=== PATIENT | male | born 1995 | race Caucasian/White ===

== ENCOUNTER 2024-03-30 17:44 | Emergency (ER) | payer BC, SELFPAY ==
--- NOTE | ~2024-03-30 | XR_ITS ---
EXAMINATION: XR KNEE, LEFT CLINICAL INFORMATION: Knee pain COMPARISON: None available. TECHNIQUE: Four views of the left knee. FINDINGS: No fracture or joint effusion. Alignment is anatomic. Joint spaces are maintained. No abnormal soft tissue calcification. XR/XR knee LT 3V IMPRESSION: Normal left knee. Electronically signed by: Chet Aguiar MD 03/30/2024 07:59 PM EDT
[2024-03-30 17:51] VITALS: BP 139/85; PULSE 63; RESP 18; TEMP 36.3; O2SAT 99; BMI 26.7
--- NOTE | 2024-03-30 17:52 | ED.GENADULT ---
HPI - General Adult General Chief complaint: Extremity Problem Stated complaint: LT knee pain radiating to thigh Time Seen by Provider: 03/30/24 20:35 Source: patient Mode of arrival: ambulatory Limitations: no limitations History of Present Illness HPI narrative: Patient is a 29-year-old male who presents emergency department for evaluation. 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 He admits to doing intense physical activity. He reports 1 week ago during a 5 mi run, towards the end he developed pain to the inferior portion of his knee radiating towards the back of the knee. He denied any notable popping sensation or sudden severe pain. The pain continued in radiated anteriorly towards his thigh. He continues to notice pain at the end of his physical activities especially during running since this happened. He admits that he has not really taken time to rest it, apply ice. He has not tried any OTC analgesics as he was advised not to take these medications during intense training in the [employer] to prevent rhabdomyolysis. He denies any numbness tingling or cold sensation to the lower extremity. Denies calf pain. Any redness swelling fevers or chills. No personal history of VTE Related Data Allergies Allergy/AdvReac Type Severity Reaction Status Date / Time Iodinated Contrast Media AdvReac Nausea and Verified 03/30/24 17:53 [Contrast Dye] Vomiting Review of Systems Review of Systems: Yes all other systems are reviewed and are negative [facility] Past Medical History Attestation statement: The following information was validated with the patient. Source: old records reviewed Social History Social History Advance Directives: No Advance Directives Information Provided: No Physical Exam ED Vital Signs: Vital Signs - 24 hr 03/30/24 17:51 Temperature 97.4 F Pulse Rate 63 Respiratory Rate 18 Blood Pressure 139/85 Pulse Oximetry 99 Oxygen Delivery Method Room Air BMI result Body Mass Index 26.7 Appearance: Alert.?Oriented to person, place and time. No acute distress.?Normal affect. CVS: Heart sounds normal. Normal heart rate and rhythm.? Pulses normal.?? Respiratory: No respiratory distress.? Lung sounds clear to auscultation bilaterally?? Skin: Skin warm and dry.? Normal skin color.? Extremities: No lower extremity edema.? No calf ttp. 2+ DP/PT pulse bilaterally. Left knee with no laxity on examination; anterior/posterior drawer test negative, valgus and varus stress test negative. No effusion. No rashes or lesions. No erythema or warmth. Mild tenderness upon palpation of the bilateral hamstring tendons posteriorly Neuro: Moves all extremities spontaneously. Sensation intact bilaterally. No focal neuro deficits. Ambulates with normal steady gait. Course Course Course Narrative: RME, this is a rapid medical exam performed by hCuck Echevarria please refer to primary provider for complete H&P- 29-year-old male presents for evaluation of left knee pain after running earlier today. He denies any specific falls. Plan for x-ray Medical Decision Making Medical Decision Making MDM Narrative: Patient is a 29-year-old male who presents emergency department for evaluation of left knee pain as per HPI, examination overall benign, does have some mild tenderness upon palpation of the bilateral hamstring tendons posteriorly without obvious deformity. Has full range of motion, no laxity, ambulatory with a steady gait. Neurovascularly intact distally. XR was obtained in his without acute osseous abnormality. We discussed etiologies for pain including sprain, tendinitis, possible meniscus tear. He has not taken any time to rest her trial conservative treatment/OTC analgesics. Recommended 3 days refraining from physical activity. Discussed with patient if his symptoms continue, he should seek further outpatient follow-up with his primary care provider and/or an orthopedist specialist. He was provided with a work note to cover the next 3 days. He would like to be able to return to work at his own discretion and exercise as he sees tolerated, at this time I feel this is reasonable. He was advised to be continues to have pain as he is experiencing he should refrain from excessive physical activity as this may worsen his symptoms and potentially lead to further injury. He verbalized understanding. Discharged in stable condition, ambulatory with a steady gait Differential Diagnosis Differential Diagnoses: The differential diagnosis associated with the presentation includes (See narrative above) Independent Interpretation I performed an independent interpretation of an: Plain X-Ray (No acute fracture dislocation) Radiology Impression Discussion of test interpretation with radiology: I have reviewed the radiologist's reading. Radiologist Impression: XR/XR knee LT 3V IMPRESSION: Normal left knee. Tests considered The following testing was considered but not selected: No indication for emergent MRI imaging of the knee for ligamentous/meniscus injury evaluation Prescription Management I considered prescription management with: Pain Medication (See narrative above) Discharge Plan Discharge Clinical Impression: Knee sprain Qualifiers: Encounter type: initial encounter Laterality: left Patient Disposition: Home, Self-Care Instructions: Knee Sprain (ED), How to Use an Elastic Bandage (ED), R.I.C.E. Treatment (ED) Additional Instructions: As discussed, I recommend that you take 3 days to fully rest, avoid any running, physical activity/exertion, bending squatting or twisting that may further exacerbate the pain in your knee. Be sure to apply ice to the area for 10-15 minutes 3-4 times daily. Using use the David bandage for compression as this may help to alleviate your pain. You can take ibuprofen 200 mg, 3 tablets (600mg) every 6-8 hours as needed for pain, in addition to Tylenol 500 mg, 2 tablets (1,000mg) every 4-6 hours as needed for pain, but not to exceed 3 doses daily (3,000mg).? You may consider follow-up with PCP/content development specialist if you continue to have symptoms. You have been provided with a work note to cover the next 3 days, ear discretion if your pain has resolved in you feel well enough to return you may do so, if you continue to have pain/symptoms or concerns then you should seek re-evaluation as previously mentioned Referrals: Physician,None [Primary Care Provider] - Stand Alone Forms: Work/School Release Print Language: Kiswahili
[2024-03-30 22:32] VITALS: BP 139/85; PULSE 63; RESP 18; TEMP 36.3; O2SAT 99
== END 2024-03-30 22:33 | disposition home or self-care (01) ==
PROVIDERS: Emergency Provider Internal Medicine
DX: S83.92XA Sprain of unspecified site of left knee, initial encounter (principal); X50.9XXA Other and unspecified overexertion or strenuous movements or postures, initial encounter; Y93.A6 Activity, grass drills; Y92.328 Other athletic field as the place of occurrence of the external cause; Y99.8 Other external cause status
CPT/HCPCS: 73562; 99282; 99283

== ENCOUNTER 2024-09-05 11:50 | Emergency (ER) | payer BC, SELFPAY ==
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
--- NOTE | ~2024-09-05 | XR_ITS ---
CLINICAL HISTORY: Right sided rib pain pluerisy 2 view chest x-ray Comparison: None Findings: No focal pulmonary opacity, pleural effusion or pneumothorax. Normal size heart. No acute fracture. IMPRESSION: 1. No acute findings. This document has been electronically signed by: Ave Salazar DO on 09/05/2024 13:37:09
[2024-09-05 11:52] VITALS: BP 133/72; PULSE 79; RESP 20; TEMP 36.2; O2SAT 96; BMI 28.6
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
[2024-09-05 12:50] LABS: MANUAL DIFF FLAG NO
--- OUTSIDE RECORDS SUMMARY | 2024-09-05 12:52 | XMS_ITS | Encounter Summary ---
Author Organization [facility] Address [address] [place] [address] Care Team Providers Care Day Care Assistant Name Role Phone Hugo Valente MD Primary Care Provider [phone] Encounter Details Date Type Department Care Team (Late st Contact Info) Description 08/18/2024 Orders Only [facility] [address] [place] [address] Rasheed Carson MD [address] [place] [address] Mass of joint of right wrist (Primary Dx) Social History Tobacco Use Types Packs/Day Years Used Date Smoking Tobacco: Never Smokeless Tobacco: Never Alcohol Use Standard Drinks/Week Comments Never 0 (1 standard drink = 0.6 oz pur e alcohol) [facility] Utilities Answer Date Recorded In the past 12 months has e electric, gas, oil, or water company threatened to shut off services in your home? No 08/03/2024 Hunger Vital Sign Answer Date Recorded Within the past 12 months, y ou worried that your food would run out before you got the money to buy more. Never true 08/03/19 25 Within the past 12 months, t he food you bought just didn't last and you didn't have money to get more. Never true 08/03/2024 Transportation Answer Date Recorded In the past 12 months, has l ack of reliable transportation kept you from medical appointments, meetings, work or from getting things needed for daily living? No 08/03/2024 Housing Answer Date Recorded Housing Risk Low 2 08/03/2024 Housing Risk Medium Not on file 08/03/2024 Housing Risk High Not on file 08/03/2024 What is your living situation today? [facility] 08/03/2024 Education Answer Date Recorded What is the highest level of school you have completed or the highest degree you have received? 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 Not on file documented as of this encounter Plan of Treatment Upcoming Encounters Date Type Department Care Team (Late st Contact Info) Description 09/09/2024 1:00 PM EDT Office Visit [facility] [address] [place] [phone] Rashaun Pruett MD [address] [place] [phone] 11/02/2024 11:30 AM EDT Follow-Up [facility] [address] [place] [phone] Hugo Valente MD [address] [place] [phone] Scheduled Orders Name Type Priority Associated Diagnoses Orde r Schedule XR Wrist 3+ vw Right Imaging Routine Mass of joint of right wrist Expected: 08/18/2024, Expires: 10/18/2025 documented as of this encounter Visit Diagnoses Diagnosis Mass of joint of right wrist- Primary documented in this encounter Care Teams Day Care Assistant Relationship Specialty Start Date End Date Hugo Valente MD [address] [place] [address] PCP - General Internal Medicine 08/03/24 documented as of this encounter
--- OUTSIDE RECORDS SUMMARY | 2024-09-05 12:52 | XMS_ITS | Encounter Summary ---
Author Organization [facility] Address [address] [place] [address] Care Team Providers Care [employer] Name Role Phone Hugo Valente MD Primary Care Provider [phone] Encounter Details Date Type Department Care Team (Late st Contact Info) Description 09/02/2024 Orders Only [facility] [address] [place] [address] Rashaun Pruett MD [address] [place] [address] Right wrist pain (Primary Dx) Social History Tobacco Use Types Packs/Day Years Used Date Smoking Tobacco: Never Smokeless Tobacco: Never Alcohol Use Standard Drinks/Week Comments Never 0 (1 standard drink = 0.6 oz pur e alcohol) [facility] Utilities Answer Date Recorded In the [...] 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 file documented as of this encounter Plan of Treatment Upcoming Encounters Date Type Department Care Team (Late st Contact Info) Description 09/09/2024 1:00 PM EDT Office Visit [facility] [address] [place] [phone] Rashaun Pruett MD [address] [place] [phone] 11/02/2024 11:30 AM EDT Follow-Up [facility] [address] [place] [address] Hugo Valente MD [address] [place] [address] Scheduled Orders Name Type Priority Associated Diagnoses Orde r Schedule X-Ray Wrist Right 3+ Views Imaging Routine Right wrist pain Expected: 09/09/2024, Expires: 11/02/2025 documented as of this encounter Visit Diagnoses Diagnosis Right wrist pain- Primary Pain in joint, forearm documented in this encounter Care Teams [employer] Relationship Specialty Start Date End Date Hugo Valente MD [address] [place] [address] PCP - General Internal Medicine 08/03/24 documented as of this encounter
--- OUTSIDE RECORDS SUMMARY | 2024-09-05 12:52 | XMS_ITS | Encounter Summary ---
Author Organization [facility] Address [address] [place] [address] Care Team Providers Care Inflated Pad Buffer Name Role Phone Hugo Valente MD Primary Care Provider [phone] Encounter Details Date Type Department Care Team (Late st Contact Info) Description 12/30/2023 Orders Only [facility] - External Imaging [address] [place] [address] Radiology, External [address] [place] [address] Social History Tobacco Use Types Packs/Day Years Used Date Smoking Tobacco: Never Smokeless Tobacco: Never Alcohol Use Standard Drinks/Week Comments Never 0 (1 standard drink = 0.6 oz pur e alcohol) [facility] Utilities Answer Date Recorded In the past 12 months has th e electric, gas, oil, or water company [...] 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 on file Not on file documented as of this encounter Plan of Treatment Upcoming Encounters Date Type Department Care Team (Late st Contact Info) Description 09/09/2024 1:00 PM EDT Office Visit [facility] [address] [place] [address] Rashaun Pruett MD [address] [place] [address] 11/02/2024 11:30 AM EDT Follow-Up [facility] [address] [place] [address] Hugo Valente MD [address] [place] [address] Pending Results Name Type Priority Associated Diagnoses Date /Time XR Transfer of Outside Films Upper Extremity Imaging Routine 08/10/2024 1:05 PM EST Scheduled Orders Name Type Priority Associated Diagnoses Orde r Schedule XR Transfer of Outside Films Upper Extremity Imaging Routine Expected: 08/10/2024, Expires: 10/08/2025 documented as of this encounter Visit Diagnoses Not on filedocumented in this encounter Care Teams Inflated Pad Buffer Relationship Specialty Start Date End Date Hugo Valente MD [address] [place] [address] PCP - General Internal Medicine 08/03/24 documented as of this encounter
--- OUTSIDE RECORDS SUMMARY | 2024-09-05 12:52 | XMS_ITS | Encounter Summary ---
Author Organization Located [facility] Address [address] [place] [address] Phone Care Team Providers Care Heat Treater Name Role Phone Marshall Fowler MD, DDS Unavailable [phone] Rigo Manzo MD Unavailable [phone] Lona Freeman DMD Unavailable Sulaiman Baxter MD Primary Care Provider Encounter Details Date Type Department Care Team (Late st Contact Info) Description 10/13/2023 Procedure Pass [facility] DEPT [address] [place] [address] Social History Tobacco Use Types Packs/Day Years Used Date Smoking Tobacco: Former Cigarettes 0.5 2 2 007 - 2009 Smokeless Tobacco: Never Comments:Per pt no longer sm okes Alcohol Use Standard Drinks/Week Comments No 0 (1 standard drink = 0.6 oz pur e alcohol) Education Answer Date Recorded Are you interested in more education? Not on asmita e 10/24/2022 Are you concerned about learning? Not on file 10/24/2022 No 10/24/2022 No 10/24/2022 Digital Access Answer Date Recorded No 11/25/2022 No 11/25/2022 Reliable internet access at home? Not on file 11/25/2022 Device with a working camera? Not on file Intimate Partner Violence Answer Date R ecorded Are you denied basic needs s uch as food, clothing, or medical care? No 10/13/2023 In the past 12 months have y ou been in a relationship with a person who hurts, threatens, or tries to control you? No 10/13/2023 Are you denied basic needs s uch as food, clothing, or medical care? No 10/13/2023 In the past 12 months have y ou been in a relationship with a person who hurts, threatens, or tries to control you? No 10/13/2023 Sex and Gender Information Value Date Recorded Sex Assigned at Not on file Gender Identity Not on file Sexual Orientation Not on file documented as of this encounter Plan of Treatment Not on file documented as of this encounter Visit Diagnoses Not on filedocumented in this encounter Care Teams Heat Treater Relationship Specialty Start Date End Date Sulaiman Baxter MD [address] [place] [address] PCP - General Internal Medicine 09/09/23 Marshall Fowler MD, DDS [address] [place] [address] [email or web address] leader 02/11/20 Rigo Manzo MD [address] [place] [address] [email or web address] insight leader 08/16/21 Lona Freeman DMD [address] [place] [address] Dentistry 08/16/21 documented as of this encounter Additional Source Comments The information contained in this document represents components of the legal health record. It is not the complete legal health record.[facility]
--- OUTSIDE RECORDS SUMMARY | 2024-09-05 12:53 | XMS_ITS | Data Portability ---
Author Organization [facility], [facility] Address [address] [facility] [address] [place] [address] Assessment Encounter Date Assessment Date Assessment LastModified by Organization Details LastModified Time 11/21/2022 11/21/2022 -Presumably musc le tension of L sternocleidomastoid and tension type headache without known injury or midline tenderness on exam -Advised to take OTC ibuprofen or Tylenol Q4-6 hours for pain relief -Recommended to give trial of therapeutic massage for relief of muscle tension -Advised application of warm compresses and topical pain relievers such as Bengay cream, capsaicin cream, or Icy Hot gel -Instructed pt to return to care if symptoms persist or worsen Not available 11/22/2022 14:13:18 Plan of Treatment Reminders Order Date Submit Date Provider Last Modified By Organization Details Last Modified Time Details Appointments None record ed. Lab None record ed. Referral None record ed. Procedures None record ed. Surgeries None record ed. Imaging None record ed. Medication Orders None record ed. Patient TargetsNo targets recorded. Patient InstructionsNo instructions recorded. Reason for Referral None Reported. Problems Name Problem SNOMED Code Status Onset Date Resolution Date Notes Provider Name and Address Organization Details Recorded Time Headache 91651245 Active 023 MIGUEL NORIEGA [address], [place], [address] , [facility] 3 14:12:02 Neck pain 38027285 Active 023 MIGUEL NORIEGA [address], [place], [address] , [facility] 3 14:12:06 Problem Notes None recorded. Medical Equipment None Reported. Allergies Allergen ID Allergen Name Allergen Category Reaction Reaction Severity Criticality Documentation Date Start Date Code Code System Note Provider Name and Address Organization Details Recorded Time 3712 iodine medicatio n Not available Not available Not available 11/21/2022 5933 RxNorm Praveen Rincon [facility] 3 19:15:58 Medications Name Sig Start Date Stop Date Status Note LastModified by Organization Details LastModified Time polyethylene glycol 3350 17 gram oral powder packet MIX 1 PACKET IN 4-8OZ OF WATER, JUICE, COFFEE, OR TEA AND DRINK DAILY NEEDED FOR CONSTIPATIO N active Not Available Not Available No t Available nystatin 100,000 unit/gram topical ointment APPLY 1 APPLICATION TO THE SKIN TWICE A DAY active Not Available Not Available Not Available moxifloxacin 400 mg tablet TAKE 1 TABLET BY MOUTH EVERY DAY FOR 7 DAYS active Not Available Not Available No t Available amoxicillin 875 mg tablet TAKE 1 TABLET BY MOUTH TWICE A DAY FOR 7 DAYS active Not Available Not Available No t Available doxycycline monohydrate 100 mg capsule TAKE 1 CAPSULE BY MOUTH TWICE A DAY FOR 5 DAYS active Not Available Not Available No t Available nystatin 100,000 unit/gram topical powder APPLY TOPICALLY 1 APPLICATION TWICE A DAY active Not Available Not Available Not Available doxycycline hyclate 100 mg tablet TAKE 1 TABLET BY MOUTH TWICE A DAY FOR 7 DAYS active Not Available Not Available No t Available BinaxNOW COVID-19 Ag Self Test kit USE DIRECTED active Not Available Not Available No t Available Vitals Date Recorded Body height Body mass index (BMI) Body weight Heart rate Oxygen saturation Oxygen saturation in Arterial blood by Pulse oximetry Body temperature Systolic blood pressure Diastolic blood pressure Provider Name and Address Organization Details Last Updated DateTime 3 195.58 cm 27.9 kg/m2 361963. 21 g 78 /min 97 % 97 % 98.2 [degF] 130 mm[Hg] 78 mm[Hg] Praveen Rincon [facility] 3 19:20:47 Social History None recorded. Functional Status None recorded. Mental Status None recorded. Family History Nothing Reported. Medical History No medical history recorded. Past Encounters Encounter ID Performer Location Encounter Start Date Encounter Closed Date Diagnosis/Indication Diagnosis SNOMED-CT Code Diagnosis ICD10 Code Diagnosis Note [id number] Dave Mosqueda MD [facility] [address] [place] [address] 11/21/2022 18:50:32 11/26/2022 09:29:48 Headache 26408452 R51.9 Neck pain 32108456 M54.2 Health Concerns Section Related Observation LastModified by Organization Detai ls LastModified Time None Recorded Concern Status LastModified by Organization Details LastModified Time None Recorded Advance Directives Directive None Recorded Payers Encounter Date Sequence Insurance Name Policy Number Policy Ashford Covered Member ID Ashford Member ID Guarantor Name 11/21/2022 1 [facility] [id number] [id number] Notes Date Note Type Note Provider Name and Address Organization Details Recorded Time 11/21/2022 text/html 27 yo M presents with frontal headache x 4 days. He states to have also developed pain of his L jaw and neck 2 days ago. 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 He has not yet taken medication for symptom relief. No known injury to the area. Denies numbness, paresthesia, or weakness. Dave Mosqueda MD [address], [place], [address], [facility] 11/22/2022 15:38:47
--- OUTSIDE RECORDS SUMMARY | 2024-09-05 12:53 | XMS_ITS | Encounter Summary ---
Author Organization [facility] Address [address] [place] [address] Phone Care Team Providers Care Adjunct Nursing Faculty Name Role Phone Pcp, Not Required Primary Care Provider Unavaila Marshall Melgar MD, DDS Unavailable [phone] Unknown, Unknown Primary Care Provider Taras faria Pcp, Not Required Primary Care Provider Unavaila Rigo Gaytan MD Unavailable [phone] Lona Freeman DMD Unavailable [phone] Sulaiman Baxter MD Primary Care Provider Encounter Details Date Type Department Care Team (Late st Contact Info) Description 01/13/2020 Telephone B Emergency Triage Log In [address] [place] [address] Nisha Mckeon, RN [address] [place] [address] [phone] [email or web address] Social History Tobacco Use Types Packs/Day Years Used Date Smoking Tobacco: Former Cigarettes 0.5 2 Smokeless Tobacco: Never Comments:Per pt no longer sm okes Alcohol Use Standard Drinks/Week Comments No 0 (1 standard drink = 0.6 oz pur e alcohol) Sex and Gender Information Value Date Recorded Sex Assigned at Not on file Gender Identity Not on file Sexual Orientation Not on file documented as of this encounter Plan of Treatment Not on file documented as of this encounter Visit Diagnoses Not on filedocumented in this encounter Additional Health Concerns Infection Onset Date Last Indicated Resolved Time CoV-Risk 01/12/2020 01/14/2020 01/26/2020 1:23 AM EDT CoV-Risk 05/23/2020 05/23/2020 06/06/2020 1:24 AM EST CoV-Exposed Comment:Recent close contact 05/23/2020 05/23/2020 06/06/2020 1:25 AM EST CoV-Risk 07/13/2020 07/13/2020 07/14/2020 12:4 8 PM EST CoV-Exposed Comment:Positive COVID-19 07/13/2020 07/13/2020 07/14/2020 12: 48 PM EST COVID-19 07/13/2020 07/13/2020 08/02/2020 1:24 AM EST CoV-Risk 03/05/2021 03/05/2021 03/15/2021 1:25 AM EDT documented as of this encounter Care Teams Adjunct Nursing Faculty Relationship Specialty Start Date End Date Pcp, Not Required [address] [place] [address] PCP - General 03/05/18 01/04/21 Unknown, Unknown, MD PCP - General 01/05/21 01/17/21 Pcp, Not Required [address] [place] [address] PCP - General 01/18/21 09/08/23 Sulaiman Baxter MD [address] [place] [address] PCP - General Internal Medicine 09/09/23 Marshall Fowler MD, DDS [address] [place] [address] [email or web address] stripper and opaquer apprentice 02/11/20 Rigo Manzo MD [address] [place] [address] [email or web address] stripper and opaquer apprentice 08/16/21 Lona Freeman DMD [address] [place] [address] Dentistry 08/16/21 documented as of this encounter Additional Source Comments The information contained in this document represents components of the legal health record. It is not the complete legal health record.[facility]
--- OUTSIDE RECORDS SUMMARY | 2024-09-05 12:53 | XMS_ITS | Encounter Summary ---
Author Organization [facility] Address [address] [place] [address] Care Team Providers Care Torque Tester Name Role Phone Hugo Valente MD Primary Care Provider [phone] Encounter Details Date Type Department Care Team (Late st Contact Info) Description 04/10/2023 [email or web address] Message [facility] Revenue Cycle Management [address] [place] [address] Mychart, Generic Provider [address] [place], [place] [phone] [facility] Customer Service Request Social History Tobacco Use Types Packs/Day Years Used Date Smoking Tobacco: Never Smokeless Tobacco: Never Alcohol Use Standard Drinks/Week Comments Never 0 (1 standard drink = 0.6 oz pur e alcohol) Education Answer Date Recorded What is the [...] 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 Not on file Not on file documented as of this encounter Plan of Treatment Upcoming Encounters Date Type Department Care Team (Late st Contact Info) Description 09/09/2024 1:00 PM EDT Office Visit [facility] [address] [place] [address] Rashaun Pruett MD [address] [place] [address] 11/02/2024 11:30 AM EDT Follow-Up [facility] [address] [place] [address] Hugo Valente MD [address] [place] [address] documented as of this encounter Visit Diagnoses Not on filedocumented in this encounter Care Teams Torque Tester Relationship Specialty Start Date End Date Hugo Valente MD [address] [place] [address] PCP - General Internal Medicine 08/03/24 documented as of this encounter
--- OUTSIDE RECORDS SUMMARY | 2024-09-05 12:53 | XMS_ITS | Clinical Summary ---
Author Organization [facility] Address [address] [place] [address] Phone Care Team Providers Care Check Writing Machine Operator Name Role Phone Unavailable Primary Care Provider Unavailabl e Allergies No known active allergies Medications Medication Sig Dispensed Refills Start Date End Date Status amoxicillin (AMOXIL) 500 MG capsule Take 500 mg by mouth. 01/18/2021 Active cloNIDine (CATAPRES) 0.1 mg tablet Take by mouth. 06/13/2009 Active Social History Tobacco Use Types Packs/Day Years Used Date Smoking Tobacco: Never Smokeless Tobacco: Never Tobacco Cessation:Counseling Given: Not Answered Alcohol Use Standard Drinks/Week Comments Never 0 (1 standard drink = 0.6 oz pur e alcohol) Housing Answer Date Recorded What is your living situation today? I have a [facility] place to live 05/27/2023 Sex and Gender Information Value Date Recorded Sex Assigned at Not on file Gender Identity Not on file Sexual Orientation Not on file Last Filed Vital Signs Vital Sign Reading Time Taken Comments Blood Pressure 128/85 05/27/2023 8:23 PM EST Pulse 70 05/27/2023 8:23 PM EST Temperature 36.5 ??C (97.7 ??F) 05/27/2023 8:23 PM ES T Respiratory Rate 18 05/27/2023 8:23 PM EST Oxygen Saturation 99% 05/27/2023 8:23 PM EST Inhaled Oxygen Concentration - - Weight 106.6 kg (235 lb) 05/27/2023 8:23 PM EST Height 195.6 cm (6' 5 ) 05/27/2023 8:23 PM EST Body Mass Index 27.87 05/27/2023 8:23 PM EST Plan of Treatment Health Maintenance Due Date Last Done Comments Dental Oral Exam 1996 Dental Prophylaxis 1996 Dental X-Ray: Bitewings 1996 Dental X-Ray: Full Mouth 1996 HIV Lifetime Screening 1996 Hepatitis B sAg Lifetime Screening 1996 Hepatitis C Antibody Lifetime Screening 1996 Periodontal Maintenance 1996 THRIVE SCREENING 1996 Oral Health Screen 1996 HEIP Disability Screen 01/19/2001 BEHAVIORAL HEALTH SCREEN 2008 Psych Substance Use Screen 2008 DTAP/TDAP VACCINE (1 - Tdap) 01/19/2015 COVID-19 Vaccine (1 - 2023- season) 2024 INFLUENZA VACCINE (#1) 2024 2, 06/10/2011, 06/20/2010 Zoster Vaccine (1 of 2) 01/19/2046 HPV VACCINES Aged Out No longer eligi ble based on patient's age to complete this topic IPV VACCINES Aged Out No longer eligi ble based on patient's age to complete this topic Pneumonia Vaccine 0-64 Aged Out No lo nger eligible based on patient's age to complete this topic ROTAVIRUS VACCINES Aged Out No longer eligible based on patient's age to complete this topic
--- OUTSIDE RECORDS SUMMARY | 2024-09-05 12:53 | XMS_ITS | Encounter Summary ---
Author Organization [facility] Address [address] [facility] [address] [place] [address] Phone Care Team Providers Care Western Felt Hat Blocker Name Role Phone Marshall Fowler MD, DDS Unavailable [phone] Pcp, Not Required Primary Care Provider UnavailRigo Wilde MD Unavailable [phone] Lona Freeman DMD Unavailable Sulaiman Baxter MD Primary Care Provider Reason for Referral * Surgical (Elective) - Closed Specialty Diagnoses / Procedures Referred By Boni jose Referred To Contact Diagnoses Extraction of tooth needed Lona Freeman DMD [address] [place] [address] [facility] ORAL MAXILLOFACIAL SURGERY [id number] Referral ID Status Reason Start Date Expiration Date Visits Re quested Visits Authorized [id number] Closed 08/16/2021 08/16/2022 1 1 Encounter Details Date Type Department Care Team (Latest Contact Info) Description 08/16/2021 Transcribe Orders [facility] Referral Management [address] [place] [address] Lona Freeman DMD [address] [place] [address] Extraction of tooth needed (Primary Dx) Social History Tobacco Use Types [...] as of this encounter Plan of Treatment Scheduled Referrals Name Type Priority Associated Diagnoses Order Schedule Ambulatory referral to [facility] Oral Maxillofacial Surgery Outpatient Referral Routine Extraction Of Tooth Needed Ordered: 08/16/2021 documented as of this encounter Visit Diagnoses Diagnosis Extraction of tooth needed- Primary documented in this encounter Care Teams Western Felt Hat Blocker Relationship Specialty Start Date End Date Pcp, Not Required [address] [place] [address] PCP - General 01/18/21 09/08/23 Sulaiman Baxter MD [address] [place] [address] PCP - General Internal Medicine 09/09/23 Marshall Fowler MD, DDS [address] [place] [address] [email or web address] blood tester 02/11/20 Rigo Manzo MD [address] [place] [address] [email or web address] blood tester 08/16/21 Lona Freeman DMD [address] [place] [address] Dentistry 08/16/21 documented as of this encounter Additional Source Comments The information contained in this document represents components of the legal health record. It is not the complete legal health record.[facility]
--- OUTSIDE RECORDS SUMMARY | 2024-09-05 12:53 | XMS_ITS | Clinical Summary ---
Author Organization [facility] Address [address] [facility] [address] [place] [address] Care Team Providers Care Arborist Representative Name Role Phone Sulaiman Baxter MD Primary Care Provider Allergies Active Allergy Reactions Criticality Noted Date Comments Dye 12/08/2023 Iodinated Contrast Media Dizziness,Unknown,Other High 07/05/2022 dizziness Social History Tobacco Use Types Packs/Day Years Used Date Smoking Tobacco: Never Assessed Tobacco Cessation:Counseling Given: Not Answered Sex and Gender Information Value Date Recorded Sex Assigned at Not on file Gender Identity Not on file Sexual Orientation Not on file Job Start Date Occupation Industry Not on file Not on file Not on file Last Filed Vital Signs Vital Sign Reading Time Taken Comments Blood Pressure 147/78 12/30/2023 4:40 PM EDT Pulse 65 12/30/2023 4:40 PM EDT Temperature 36.8 ??C (98.2 ??F) 12/30/2023 4:40 PM ED T Respiratory Rate 19 12/30/2023 4:40 PM EDT Oxygen Saturation 100% 12/30/2023 4:40 PM EDT Inhaled Oxygen Concentration - - Weight 102.1 kg (225 lb) 12/08/2023 11:00 AM EDT Height 195.6 cm (6' 5 ) 12/08/2023 11:00 AM EDT Body Mass Index 26.68 12/08/2023 11:00 AM EDT Plan of Treatment Health Maintenance Due Date Last Done Comments HIV Screening 1996 HPV Vaccines (2 - Male 3-dose series) 01/21/2013 12/24/2012 Hepatitis C Screening 01/19/2014 COVID-19 Vaccine (3 - 2024-25 season) 2024 12/24/2020, 11/19/2020 Depression Screening 06/30/2024 DTaP/Tdap/Td Vaccines (8 - Td or Tdap) 09/29/2026 09/29/2016, 06/20/2010, 01/28/2000, Additional history exists Hepatitis B Vaccines Completed 1996, 1996, 1996 HIB Vaccines Completed 05/02/1997, 08/29, 1996, Additional history exists IPV Vaccines Completed 01/28/2000, 01/29, 1996, Additional history exists MMR Vaccines Completed 01/28/2000, 05/02/1997 Varicella Vaccines Completed 06/20/2010, 02/13/1999 Meningococcal Vaccine Completed 12/24/2012, 010 Influenza Vaccine Completed 06/09/2024, , 06/10/2011, Additional history exists Hepatitis A Vaccines Aged Out No long er eligible based on patient's age to complete this topic Meningococcal B Vaccine Aged Out No l onger eligible based on patient's age to complete this topic Pneumococcal Vaccine: Pediatrics (0 to 5 Years) and At-Risk Patients (6 to 49 Years) Aged Out No longer eligible based on patient's age to complete this topic Rotavirus Vaccines Aged Out No longer eligible based on patient's age to complete this topic Care Teams Arborist Representative Relationship Specialty Start Date End Date Sulaiman Baxter MD [facility] Internal Medicine [address] [place] [address] PCP - General Marble Supervisor 05/19/23
--- OUTSIDE RECORDS SUMMARY | 2024-09-05 12:53 | XMS_ITS | Referral Summary ---
Author Organization [facility] Address [address] [place] [address] Phone Care Team Providers Care Machine Leather Trimmer Name Role Phone Unavailable Primary Care Provider [...] your living situation today? I have a [facility] place to live 05/27/2023 Sex and Gender [...] 05/27/2023 8:23 PM EST Plan of Treatment Not on file
--- OUTSIDE RECORDS SUMMARY | 2024-09-05 12:53 | XMS_ITS | Encounter Summary ---
Author Organization [facility] Address [address] [place] [address] Care Team Providers Care Roentgenology Teacher Name Role Phone Hugo Valente MD Primary Care Provider [phone] Reason for Visit * Reason Comments Hand Injury Hand Pain Encounter Details Date Type Department Care Team (Late st Contact Info) Description 09/01/2024 10:29 PM EST - 09/02/2024 12:15 AM EST Emergency [facility] Emergency Department [address] [place] [address] Rasheed Sanchez MD [address] [place] [address] Sabra Dupont MD [address] [place] [id number] Injury of left thumb, initial encounter (Primary Dx) Discharge Disposition: Home or Self Care () Social History Tobacco Use Types Packs/Day Years Used Date Smoking Tobacco: Never Smokeless Tobacco: Never Alcohol Use Standard Drinks/Week Comments Never 0 (1 standard drink = 0.6 oz pur e alcohol) [facility] Utilities Answer Date Recorded In [...] 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 on file Not on file documented as of this encounter Last Filed Vital Signs Vital Sign Reading Time Taken Comments Blood Pressure 116/86 09/01/2024 10:38 PM EST Pulse 94 09/01/2024 10:38 PM EST Temperature 36.7 ??C (98 ??F) 09/01/2024 10:38 PM EST Respiratory Rate 16 09/02/2024 12:14 AM EST Oxygen Saturation 97% 09/01/2024 10:38 PM EST Inhaled Oxygen Concentration - - Weight 102.5 kg (226 lb) 09/01/2024 10:38 PM EST Height 195.6 cm (6' 5 ) 09/01/2024 10:38 PM EST Body Mass Index 26.8 09/01/2024 10:38 PM EST documented in this encounter Discharge Instructions * Discharge Instructions* Jv Coombs MD - 09/02/2024 12:11 AM EST You were evaluated in the emergency department for a left thumb injury. Your examination was reassuring. Please see your primary care provider in a week to ensure that you do not have any sequela of injury that was not picked up on this initial exam. Otherwise use Tylenol and ibuprofen for pain andinflammation. documented in this encounter Medications at Time of Discharge acetaminophen (TYLENOL) 325 mg tablet Take 3 tablets (975 mg total) by mouth every 6 hours as needed for pain. 60 tablet 01/06/2023 polyethylene glycol 3350 (MIRALAX) powder DISSOLVE 17 GRAMS IN 8 OZ OF FLUID LIQUID DRINK DAILY DIRECTED 510 g 08/03/2024 documented as of this encounter Plan of Treatment Upcoming Encounters Date Type Department Care Team (Late st Contact Info) Description 09/09/2024 1:00 PM EDT Office Visit [facility] [address] [place] [id number] Rashaun Pruett MD [address] [place] [phone] 11/02/2024 11:30 AM EDT Follow-Up [facility] [address] [place] [address] Hugo Valente MD [address] [place] [address] documented as of this encounter Procedures * Due to [place] [employer] law, this organization might not be sharing negative HIV tests. Procedure Name Priority Date/Time Associated Diagnosis Comments XR FINGER(S) 2+ VW LEFT STAT 09/01/2024 11:50 PM EST documented in this encounter Results * Due to [place] [employer] law, this organization might not be sharing negative HIV tests. * X-Ray Finger Left 2+ Views (09/01/2024 11:50 PM EST) Anatomical Region Laterality Modality Upper Extremities, Fingers Left Compu vikas Radiography 09/01/2024 11:5 3 PM EST Impressions 09/01/2024 11:54 PM EST 1. ??Unremarkable plain film radiograph of the left first digit. If this radiology report contains a blank impression section, it is an incomplete radiology report. ??Please contact the interpreting radiologist or applicable radiology division as soon as possible to obtain the completed interpretation. ? Workstation ID: [id number] Narrative 09/01/2024 11:54 PM EST EXAMINATION: ??XR FINGER(S) 2+ VW LEFT EXAM DATE: ??09/01/2024 11:26 PM TECHNIQUE: ??AP, lateral, and oblique (3 views) INDICATION: ??hyper abduction of left thumb, pain w/ ROM <524:Comments> COMPARISON: ??None ENCOUNTER: Initial FINDINGS: There is no radiographic evidence of a fracture or dislocation of the left first digit. No significant soft tissue abnormalities are visualized. Joint spaces are preserved. No radiopaque foreign bodies are identified. Resulting Agency Comment [id number] Procedure Note Romel Braga MD - 09/01/2024 EXAMINATION: XR FINGER(S) 2+ VW LEFT EXAM DATE: 09/01/2024 11:26 PM TECHNIQUE: AP, lateral, and oblique (3 views) INDICATION: hyper abduction of left thumb, pain w/ ROM <524:Comments> COMPARISON: None ENCOUNTER: Initial FINDINGS: There is no radiographic evidence of a fracture or dislocation of the leftfirst digit. No significant soft tissue abnormalities are visualized.Joint spaces are preserved. No radiopaque foreign bodies are identified. IMPRESSION: 1. Unremarkable plain film radiograph of the left first digit. If this radiology report contains a blank impression section, it is anincomplete radiology report. Please contact the interpreting radiologistor applicable radiology division as soon as possible to obtain thecompleted interpretation. Workstation ID: [id number] us Rasheed Sanchez MD IMG XR PROCEDURES Final Resul t documented in this encounter Visit Diagnoses Diagnosis Injury of left thumb, initial encounter- Primary documented in this encounter Care Teams Roentgenology Teacher Relationship Specialty Start Date End Date Hugo Valente MD [address] [place] [id number] PCP - General Internal Medicine 08/03/24 documented as of this encounter
--- OUTSIDE RECORDS SUMMARY | 2024-09-05 12:53 | XMS_ITS | Encounter Summary ---
Author Organization [facility] Address [address] [facility] [address] [place] [phone] Phone Care Team Providers Care X Ray Developer Name Role Phone Fco Simpson Nagi PT Primary Care Provider UnaDevin Woodall MD Unavailable [phone] Pcp, Not Required Primary Care Provider Unavaila Marshall Melgar MD, DDS Unavailable [phone] Unknown, Unknown Primary Care Provider Taras faria Pcp, Not Required Primary Care Provider UnavailRigo Wilde MD Unavailable Lona Freeman DMD Unavailable Sulaiman Baxter MD Primary Care Provider Encounter Details Date Type Department Care Team (Late st Contact Info) Description 08/07/2016 [place]hth [place]am [facility] [place] [facility] [address] [place] [address] Spencer Reeves MD, PhD [address] [place] [address] [email or web address] Social History Tobacco Use Types Packs/Day Years Used Date Smoking Tobacco: Former Cigarettes 0.5 2 Comments:Per pt no longer sm okes Alcohol [...] documented as of this encounter Care Teams X Ray Developer Relationship Specialty Start Date End Date Fco Simpson, PT [address], [place] PCP - General 02/02/16 03/04/18 Pcp, Not Required [address] [place] [id number] PCP - General 03/05/18 01/04/21 Unknown, Colin, PCP - General 01/05/21 01/17/21 Pcp, Not Required [address] [place] [address] PCP - General 01/18/21 09/08/23 Sulaiman Baxter MD [address] [place] [id number] PCP - General Internal Medicine 09/09/23 Devin Avila MD [address] [place] [phone] [email or web address] Insurance Assigned Provider 02/01/17 07/04/18 Marshall Fowler MD, DDS [address] [place] [address] [email or web address] tractor machine operator 02/11/20 Rigo Manzo MD [address] [place] [phone] [email or web address] tractor machine operator 08/16/21 Lona Freeman DMD [address] [place] [phone] Dentistry 08/16/21 documented as of this encounter Additional Source Comments The information contained in this document represents components of the legal health record. It is not the complete legal health record.[facility]
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
--- OUTSIDE RECORDS SUMMARY | 2024-09-05 12:53 | XMS_ITS | Encounter Summary ---
Author Organization [facility] Address [address] [employer] [facility] [address] [place] [address] Phone Care Team Providers Care Flume Maker Name Role Phone Pcp, Not Required Primary Care Provider Unavaila Marshall Melgar MD, DDS Unavailable [phone] Unknown, Unknown Primary Care Provider Taras faria Pcp, Not Required Primary Care Provider Unavaila Rigo Gaytan MD Unavailable Lona Freeman DMD Unavailable Sulaiman Baxter MD Primary Care Provider Encounter Details Date Type Department Care Team (Late st Contact Info) Description 02/03/2020 Ophth Exam [facility] Emergency Department [address] [place] [address] Dalia Baez MD [address] [place] [id number] [email or web address] Social History Tobacco Use Types Packs/Day Years [...] Onset Date Last Indicated Resolved Time CoV-Risk 05/23/2020 05/23/2020 06/06/2020 1:24 AM EST Co[facility]-Exposed Comment:Recent close contact 05/23/2020 05/23/2020 06/06/2020 1:25 AM EST CoV-Risk 07/13/2020 07/13/2020 07/14/2020 12:4 8 PM EST [facility]Exposed Comment:Positive COVID-19 07/13/2020 07/13/2020 07/14/2020 12: 48 PM EST COVID-19 07/13/2020 07/13/2020 08/02/2020 1:24 AM EST CoV-Risk 03/05/2021 03/05/2021 03/15/2021 1:25 AM EDT documented as of this encounter Care Teams Flume Maker Relationship Specialty Start Date End Date Pcp, Not Required [address] [place] [address] PCP - General 03/05/18 01/04/21 Unknown, Colin, PCP - General 01/05/21 01/17/21 Pcp, Not Required [address] [place] [address] PCP - General 01/18/21 09/08/23 Sulaiman Baxter MD [address] [place] [address] PCP - General Internal Medicine 09/09/23 Marshall Fowler MD, DDS [address] [place] [phone] [email or web address] procurement analyst 02/11/20 Rigo Manzo MD [address] [place] [address] [email or web address] procurement analyst 08/16/21 Lona Freeman DMD [address] [place] [phone] Dentistry 08/16/21 documented as of this encounter Additional Source Comments The information contained in this document represents components of the legal health record. It is not the complete legal health record.[facility]
--- OUTSIDE RECORDS SUMMARY | 2024-09-05 12:53 | XMS_ITS | Encounter Summary ---
Author Organization [facility] Address [address] [employer] [facility] [address] [place] [phone] Phone Care Team Providers Care Ampoule Examiner Name Role Phone Marshall Fowler MD, DDS Unavailable [phone] Pcp, Not Required Primary Care Provider UnavailRigo Wilde MD Unavailable Lona Freeman DMD Unavailable Sulaiman Baxter MD Primary Care Provider Encounter Details Date Type Department Care Team (Late st Contact Info) Description 09/10/2021 Procedure [facility] Emergency Department, [facility] [address] [place] [address] Social History Tobacco Use Types Packs/Day Years [...] on filedocumented in this encounter Care Teams Ampoule Examiner Relationship Specialty Start Date End Date Pcp, Not Required [address] [place] [phone] PCP - General 01/18/21 09/08/23 Sulaiman Baxter MD [address] [place] [phone] PCP - General Internal Medicine 09/09/23 Marshall Fowler MD, DDS [address] [place] [phone] [email or web address] solution maker 02/11/20 Rigo Manzo MD [address] [place] [address] [email or web address] solution maker 08/16/21 Lona Freeman DMD [address] [place] [phone] Dentistry 08/16/21 documented as of this encounter Additional Source Comments The information contained in this document represents components of the legal health record. It is not the complete legal health record.[facility]
--- OUTSIDE RECORDS SUMMARY | 2024-09-05 12:53 | XMS_ITS | Clinical Summary ---
Author Organization [facility] Address [address] [place] [address] Care Team Providers Care Structured Cabling Technician Name Role Phone Sulaiman Baxter MD Primary Care Provider [phone] Allergies Active Allergy Reactions Criticality Noted Date Comments Iodinated Contrast Media Other (See Comments) 1 08/02/2022 dizziness Social History Tobacco Use Types Packs/Day Years Used Date Smoking Tobacco: Never Assessed Sex and Gender Information Value Date Recorded Sex Assigned at Male 06/01/2023 11:35 PM EST Legal Sex Male 11:32 PM EST Gender Identity Male 06/01/2023 11:35 PM EST Sexual Orientation Not on file Last Filed Vital Signs Vital Sign Reading Time Taken Comments Blood Pressure 142/91 06/01/2023 11:39 PM EST Pulse 84 06/01/2023 11:39 PM EST Temperature 36.7 ??C (98 ??F) 06/01/2023 11:39 PM EST Respiratory Rate 18 06/01/2023 11:39 PM EST Oxygen Saturation 96% 06/01/2023 11:39 PM EST Inhaled Oxygen Concentration - - Weight 105 kg (230 lb 9.6 oz) 10/23/2023 3:40 PM EDT Height 195.6 cm (6' 5 ) 10/23/2023 3:40 PM EDT Body Mass Index 27.35 10/23/2023 3:40 PM EDT Plan of Treatment Health Maintenance Due Date Last Done Comments Depression Screening 2000 Hepatitis C Screening 01/19/2014 COVID-19 Vaccine ( season) 2024 Influenza Vaccine (#1) 2024 , 06/10/2011, 06/20/2010 DTaP,Tdap,and Td Vaccines (8 - Td or Tdap) 09/29/2026 09/29/2016, 06/20/2010, 01/28/2000, Additional history exists Blood Pressure 06/01/2027 06/01/2023 Meningococcal Vaccines Completed 12/24/2012, 2009 Pneumococcal Vaccine: Pediatrics (0 to 5 Years) and At-Risk Patients (6 to 64 Years) Aged Out No longer eligible based on patient's age to complete this topic Insurance [employer] / Indemnity [facility] [employer] / Indemnity BLUE [employer]UE [employer]IELD Care Teams Structured Cabling Technician Relationship Specialty Start Date End Date Sulaiman Baxter MD [address] [place] [phone] PCP - General Internal Medicine 06/02/23
--- OUTSIDE RECORDS SUMMARY | 2024-09-05 12:53 | XMS_ITS | Clinical Summary ---
Author Organization [facility] Address [address] [place] [address] Phone Care Team Providers Care Silk Winding Machine Operator Name Role Phone AutomaticallyONE, SignedONE Unavailable Conditions or Problems No information available. Medications No information available. Medications Administered No information available. Allergies, Adverse Reactions, Alerts No information available. Results Date Name Value Unit Range Flag Description Lab Report: COMPREHENSIVE ME TABOLIC PANEL / LOC:ED, MAGNESIUM / LOC:ED, ... TROPONIN I < 2 ng/L ng/mL 0-45 troponin I MAGNESIUM 2.2 mg/dL 1.6-2.6 Magnesium [Moles/volume] in Serum or Plasma Lab Report: PT WITH INR / LO C:ED, PARTIAL THROMBOPLASTIN TIME / LOC:ED, ... PTT PATIENT 28.2 s 24.1-32 PTT patie nt INR 0.94 INR in Platel et poor plasma by Coagulation assay PT PATIENT 10.1 s 9.5-12.1 Prothromb in time (PT) Lab Report: NT-PRO BNP / LOC :ED PBNP 11.9 0-125 NT-pro BNP Lab Report: HEPATIC FUNCTION PANEL / LOC:ED, BASIC METABOLIC PANEL / LOC ... LIPASE SERUM 44 U/L 12-53 lipase, serum CALCIUM 10.0 mg/dL 8.7-10.4 Calcium [Moles/volume] in Serum or Plasma GFRC 94 (?) mL/min/1 .73m2 >90 Glomerular Filtration Rate Calculation CREATININE 1.10 mg/dL 0.70-1.30 Creatini ne [Mass/volume] in Serum or Plasma BUN 12 mg/dL 9-23 Urea nitrogen [Mass/volume] in Serum or Plasma BG RANDOM 97 mg/dL 70-99 Glucose [Mass/volume] in Blood ANION GAP 7 mEq/L 5-15 Anion gap 4 in Serum or Plasma CO2 TOTAL 28 MEQ/L mmol/L 20.0-31.0 carbon d ioxide, serum, total CL SERUM 107 meq/L 99-113 Chloride [Moles/volume] in Serum or Plasma K SERUM 3.9 meq/L 3.5-5.5 Potassium [Moles/volume] in Serum or Plasma SODIUM 142 MEQ/L mmol/L 135-145 Sodium [Moles/volume] in Serum or Plasma Lab Report: CBC WITH DIFFERE NTIAL / LOC:ED MPV 10.4 fL 9.4-12.4 Platelet sukumar n volume [Entitic volume] in Blood by Scott RDW 12.0 % 11.5-14.5 Erythrocyte distribution width [Ratio] by Automated count MCHC 33.0 G/DL % 31.0-35.5 MCHC [Mas s/volume] by Automated count MCH 28.0 pg 26.0-34.0 MCH [Entiti c mass] by Automated count MCV 84.8 fL 80.0-99.0 MCV [Entiti c volume] by Automated count BASOPH COUNT 0.0 10*3/mm3 0-0.3 Basophi ls [#/volume] in Blood by Manual count EOS COUNT 0.1 10*3/mm3 0-0.5 eosinophil count, blood MONOCYTE CNT 0.4 10*3/mm3 0.0-0.8 monocyt e count, blood LYMPH COUNT 1.9 10*3/mm3 1.0-4.8 lymphocy te count, blood NEUTRO COUNT 3.3 10*3/mm3 1.8-7.7 neutrop hil count, blood IMM GRANU % 0.2 % 0-5 Immature granulocytes/100 leukocytes in Blood BASOPHIL % 0.4 % 0-3 Basophils/ 100 leukocytes in Blood by Manual count EOSINOPHIL % 1.4 % 0-6 Eosinoph ils/100 leukocytes in Blood by Manual count MONOCYTE % 6.4 % 0-11 Monocytes/ 100 leukocytes in Blood by Automated count LYMPHS % 33.3 % 22-44 Lymphocytes/ 100 leukocytes in Blood by Automated count PMN % 58.3 % 40-70 Neutrophils/1 00 leukocytes in Blood by Automated count PLATELETS 273 10*3/mm3 150-450 Platelets [#/volume] in Blood by Automated count HCT 43.0 % 41.0-53.0 Hematocrit [Volume Fraction] of Blood by Automated count HGB 14.2 g/dL 13.5-17.5 Hemoglobin [Mass/volume] in Blood RBC 5.07 10*6/mm3 4.50-5.90 Erythrocyt es [#/volume] in Blood by Automated count WBC 5.7 10*3/mm3 4.5-11.0 Leukocytes [#/volume] in Blood by Automated count Lab Report: HEPATIC FUNCTION PANEL / LOC:ED SGPT (ALT) 25 U/L 7-40 Alanine aminotransferase [Enzymatic activity/volume] in Serum or Plasma SGOT (AST) 18 U/L 13-40 Aspartate aminotransferase [Enzymatic activity/volume] in Serum or Plasma ALK PHOS 94 U/L 46-116 Alkaline phosphatase [Enzymatic activity/volume] in Blood BILI DIRECT 0.1 mg/dL 0.0-0.3 Bilirubin .direct [Mass/volume] in Serum or Plasma BILI TOTAL 0.4 mg/dL 0.3-1.2 Bilirubin. total [Mass/volume] in Serum or Plasma A/G RATIO 1.5 Albumin/Marioal bulin [Mass Ratio] in Serum or Plasma GLOBULIN TOT 2.9 g/dL 2.3-4 Globulin [Mass/volume] in Serum ALBUMIN 4.4 g/dL 3.2-4.8 Albumin [Mass/volume] in Serum or Plasma PROTEIN, TOT 7.3 g/dL 5.7-8.2 Protein [Mass/volume] in Serum or Plasma Lab Report: URINALYSIS EMERG ENCY DEPT / LOC:ED WBC ESTERASE NEGATIVE NEGATIVE leukoc yte (WBC) esterase, urine NITRITE UA NEGATIVE NEGATIVE Nitrite Urine UROBILINO UR 1.0 {Maria D _U}/dL <=1.0 urobilinogen, urine PROTEIN UR NEGATIVE mg/dL NEGATIVE Protein [Mass] in Urine collected for unspecified duration BLOOD UR NEGATIVE NEGATIVE BLOOD, URI NE (hematuria) KETONES UA NEGATIVE mg/dL NEGATIVE Ketones [Mass/volume] in Urine by Test strip BILIRUBIN UR NEGATIVE NEGATIVE Biliru bin.total [Presence] in Urine by Test strip GLUCOSE UA NEGATIVE mg/dL NEGATIVE Glucose Urine SPEC GR URIN 1.020 1.005-1.025 Spec ific gravity of Urine by Test strip PH U QN 6.0 5.5-7.5 ph, urine, quantitative APPEARANCE U CLEAR CLEAR Appearan ce of Urine UA COLOR YELLOW YELLOW Color of Uri ne Plan of Care No information available. Procedures No information available. Vital Signs No information available. Immunizations No information available. Advance Directives No information available.
--- OUTSIDE RECORDS SUMMARY | 2024-09-05 12:53 | XMS_ITS | Encounter Summary ---
Author Organization [facility] Address [address] [facility] [address] [place] [phone] Phone Care Team Providers Care Engineering Director Name Role Phone Marshall Fowler MD, DDS Unavailable [phone] Rigo Manzo MD Unavailable Lona Freeman DMD Unavailable Sulaiman Baxter MD Primary Care Provider Encounter Details Date Type Department Care Team (Late st Contact Info) Description 09/19/2023 Procedure Pass [facility] - [facility] Main [address] [address] Social History Tobacco Use Types Packs/Day Years [...] with a working camera? Not on file Sex and Gender Information Value Date Recorded Sex Assigned at Not on file Gender Identity Not on file Sexual Orientation Not on file documented as of this encounter Plan of Treatment Not on file documented as of this encounter Visit Diagnoses Not on filedocumented in this encounter Care Teams Engineering Director Relationship Specialty Start Date End Date Sulaiman Baxter MD [address] [place] [phone] PCP - General Internal Medicine 09/09/23 Marshall Fowler MD, DDS [address] [place] [phone] [email or web address] analyst 02/11/20 Rigo Manzo MD [address] [place] [phone] [email or web address] sap data analyst 08/16/21 Lona Freeman DMD [address] [place] [phone] Dentistry 08/16/21 documented as of this encounter Additional Source Comments The information contained in this document represents components of the legal health record. It is not the complete legal health record.[facility]
--- OUTSIDE RECORDS SUMMARY | 2024-09-05 12:53 | XMS_ITS | Clinical Summary ---
Author Organization [facility] Address [address] [place] [address] Care Team Providers Care Health Sciences Manager Name Role Phone Hugo Valente MD Primary Care Provider [phone] Allergies Active Allergy Reactions Criticality Noted Date [...] EDT): Referral made to the ENT S/p [id number] times in the past 12 months Acute [...] Reviewed patient's EKG. First-degree heart block and IL prolongation. However, QRS duration was normal. Reviewed [...] (08/03/2024): OPPOSITIONAL DEFIANT DISORDER 2019R1.3 IMO Load Encounters Date Type Department Care Team Description 09/02/2024 Orders Only [facility] [address] [place] [phone] Rashaun Pruett MD Right wrist pain (Primary Dx) 09/01/2024 10:29 PM EST - 09/02/2024 12:15 AM EST Emergency [facility] Emergency Department [address] [place] [phone] Rasheed Sanchez MD Lima-Babigian, Rochelle, MD Injury of left thumb, initial encounter (Primary Dx) Discharge Disposition: Home or Self Care () 08/18/2024 Orders Only [facility] [address] [place] [phone] Rasheed Carson MD Mass of joint of right wrist (Primary Dx) 08/03/2024 8:45 AM EST Office Visit [facility] [address] [place] [address] Hugo Valente MD Ganglion cyst of wrist, right (Primary Dx); Irritable bowel syndrome with constipation; Encounter to establish care 08/03/2024 Refill [facility] [address] [place] [address] Hugo Valente MD from Last 3 Months Immunizations Immunization Administration Dates Next Due Covid-19 [...] Vaccine, Adsorbed 09/29/2016,06/20/2010 Varicella Virus Vaccine 06/20/2010,02/13/1999 Family History Medical History Relation Name Comments Diabetes type II Father Myocardial Infarction Father Substance Abuse Father No Known Problems Maternal Grandfather Myocardial Infarction Maternal Grandmother Substance Abuse Maternal Grandmother Diabetes type II Other Uncle No Known Problems Paternal Grandfather Myocardial Infarction Paternal Grandmother Relation Name Status Comments Brother 1 Alive Brother 2 Alive Brother 3 Alive Father Alive Maternal Grandfather Maternal Grandmother Mother Alive Other Uncle Alive Paternal Grandfather Paternal Grandmother Social History Tobacco Use Types Packs/Day Years Used Date Smoking Tobacco: Never Smokeless Tobacco: Never Tobacco Cessation:Counseling Given: Not Answered Alcohol Use Standard Drinks/Week Comments Never 0 (1 standard drink = 0.6 oz pur e alcohol) [facility] Utilities Answer Date Recorded In the past [...] 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 [address], [place] [phone] Hugo Valente MD [address] [place], [place] [phone] Health Maintenance Due Date Last Done Comments COVID-19 Vaccine ( season) 2024 12/24/2020, 11/19/2020 Depression Screening and Follow-Up 08/03/2025 08/03/2024, 08/03/2024 Social Drivers of Health Annual Screening 08/03/2025 08/03/2024 DTaP,Tdap,and Td Vaccines (8 - Td or Tdap) 09/29/2026 09/29/2016, 06/20/2010, 01/28/2000, Additional history exists RSV Vaccine (60+ years old and patients) (1 - 1-dose 75+ series) 01/19/2071 Hepatitis B Vaccines Completed 1996, 1996, 1996 Varicella Vaccines Completed 06/20/2010, 02/13/1999 Influenza Vaccine Completed 06/09/2024, , 05/22/2022, Additional history exists Alcohol/Substance Use Screening Completed 08/03/2024 HIV Screening Completed 08/03/2024 Hepatitis C Screening Completed 08/03/2024 Pneumococcal Vaccine: Pediatric (0-5 Years) and At-Risk Patients (6-50 Years) Aged Out No longer eligible based on patient's age to complete this topic Procedures * Due to [place] GENERAL [employer] law, this organization might not be sharing [...] Last 3 Months Results * Due to [place] GENER[place] [employer] law, this organization might not be sharing [...] obtain the completed interpretation. ? Workstation ID: [id number] Narrative 09/01/2024 11:54 PM EST EXAMINATION: ??XR [...] foreign bodies are identified. Resulting Agency Comment [id number] Procedure Note Romel Braga MD - 09/01/2024 [...] possible to obtain thecompleted interpretation. Workstation ID: [id number] Rasheed Sanchez MD IMG XR PROCEDURES Final Resul t * TSH Reflex Free T4 (08/03/2024 1:26 PM EST) TSH 2.010 0.280 - 3.890 uIU/mL 08/03/2024 2:39 PM EST [facility] Blood Structure of peripheral vein / Unknown Venipuncture / Unknown 08/03/2024 1:26 PM EST 08/03/2024 2:00 PM EST Hugo Valente MD LAB BLOOD ORDERABLES Final Resul t [facility] [address] [place] [phone], [place] * (ABNORMAL) Lipid Panel w/Reflex to Direct LDL (08/03/2024 1:26 PM EST) Cholesterol 263(H) <=199 mg/dL 08/03/2024 2:39 PM EST [facility] Triglycerides 158(H) <=149 mg/dL 08/03/2024 2:39 PM EST [facility] Cholesterol, HDL 57 40 - 59 mg/dL 08/03/2024 2:39 PM EST [facility] Cholesterol, Non-HDL 206 mg/dL 08/03/2024 2:39 PM EST [facility] LDL Cholesterol 174(H) <100 mg/dL 08/03/2024 2:39 PM EST [facility] VLDL 31.6 mg/dL 08/03/2024 2:39 PM EST [facility] Cholesterol/HDL Ratio 4.6 <5.0 08/03/2024 2:39 PM EST [facility] Blood Structure of peripheral vein / Unknown Venipuncture / Unknown 08/03/2024 1:26 PM EST 08/03/2024 2:00 PM EST Narrative [facility] - 08/03/2024 2:39 PM EST Adult Treatment Panel III Guidelines of NCEP 2000 ? Category: ? Total Cholesterol (mg/dL) ?Desirable [...] MD LAB BLOOD ORDERABLES Final Resul t [facility] [address] [place] [address], [place] * CBC Auto Differential (08/03/2024 1:26 PM EST) WBC 5.0 3.8 - 10.8 10*3/uL 08/03/2024 2:09 PM EST [facility] RBC 5.22 4.20 - 5.80 10*6/uL 08/03/2024 2:09 PM EST [facility] Hemoglobin 14.4 13.2 - [...] % 7.3 % 08/03/2024 2:09 PM EST [facility] Eosinophil % 1.4 % 08/03/2024 2:09 PM EST [facility] Basophil % 0.6 % 08/03/2024 2:09 PM EST [facility] Neutrophil # 2.83 1.50 - 7.80 10*3/uL 08/03/2024 2:09 PM EST [facility] Immature Grans # <0.03 <=0.03 10*3/uL 08/03/2024 2:09 PM EST [facility] Lymphocyte # 1.70 0.85 - 3.90 10*3/uL 08/03/2024 2:09 PM EST [facility] Monocyte # 0.40 0.20 - 0.95 10*3/uL 08/03/2024 2:09 PM EST [facility] Eosinophil # 0.10 0.02 - 0.50 10*3/uL 08/03/2024 2:09 PM EST [email or web address] Basophil # <0.03 0.00 - 0.20 10*3/uL 08/03/2024 2:09 PM EST [facility] nRBC % 0.0 /100 WBCs 08/03/2024 2:09 PM EST [facility] nRBC # <0.01 <0.01 10*3/uL 08/03/2024 2:09 PM EST [facility] Blood Structure of peripheral vein / Unknown Venipuncture / Unknown 08/03/2024 1:26 PM EST 08/03/2024 2:00 PM EST Hugo Valente MD LAB BLOOD ORDERABLES Final Resul t [facility] [address] [place] [address], * Hepatitis C Antibody w/Reflex to PCR (08/03/2024 1:26 PM EST) Hepatitis C Antibody NON-REACT MALGORZATA NON-REACT MALGORZATA 08/03/2024 9:25 PM EST [employer] [facility] Comment: HCV antibody was non-reactive. There is no laboratory evidence of HCV infection. In most cases, no further action is required. However, if recent HCV exposure is suspected, a test for HCV RNA (test code 46654) is suggested. For additional information please refer to http://education.Nuroa/faq/LLR72t0 (This link is being provided for informational/ educational purposes only.) Blood Structure of peripheral vein / Unknown Venipuncture / Unknown 08/03/2024 1:26 PM EST 08/03/2024 2:00 PM EST Narrative [facility] - 08/03/2024 9:25 PM EST [facility] Received Date: us Hugo Valente MD LAB BLOOD ORDERABLES Final Resul t Performing Organization Address City/[facility]/ZIP Co de Phone Number [facility] [place] [address] [facility] [address] [facility], [place] [address], [employer] [facility] [address], [place] [address], * Sedimentation Rate (08/03/2024 1:26 PM EST) Sed Rate 11 <15 mm/Hr mm/Hr 08/03/2024 2:12 PM EST [facility] Blood Structure of peripheral vein / Unknown Venipuncture / Unknown 08/03/2024 1:26 PM EST 08/03/2024 2:00 PM EST us Hugo Valente MD LAB BLOOD ORDERABLES Final Resul t Performing Organization Address [facility]/ZIP Co de Phone Number [employer] [facility] [address] [place] [phone], * Hemoglobin A1c (08/03/2024 1:26 PM EST) Hemoglobin A1C 5.5 <5.7 % of total Hgb 08/03/2024 9:22 PM EST [employer] [facility] Comment: For the purpose of screening for the presence of diabetes: <5.7% ? Consistent with the absence of diabetes 5.7-6.4% ?Consistent with increased risk for diabetes ?(prediabetes) > or =6.5% ??Consistent with diabetes This assay result is consistent with a decreased risk of diabetes. Currently, no consensus exists regarding use of hemoglobin A1c for diagnosis of diabetes in children. According to [place] Diabetes Association (ADA) guidelines, hemoglobin A1c <7.0% represents optimal control in non- diabetic patients. Different metrics may apply to specific patient populations. Standards of Medical Care in Diabetes(ADA). ?? eAG (MG/DL) 111 mg/dL 08/03/2024 9:22 PM EST [employer] eAG (MMOL/L) 6.2 mmol/L 08/03/2024 9:22 PM EST [employer] Blood Structure of peripheral vein / Unknown Venipuncture / Unknown 08/03/2024 1:26 PM EST 08/03/2024 1:59 PM EST [facility] - 08/03/2024 9:22 PM EST [facility] Received Date: Hugo Valente MD LAB BLOOD ORDERABLES Final Resul t [facility] [address] [facility] 3rd Floor, [place] [address], [employer] [facility] [address], [place] [address], * Comprehensive metabolic panel (08/03/2024 1:26 PM EST) NA 139 135 - 145 mmol/L 08/03/2024 2:39 PM EST [facility] K 4.4 3.5 - 5.3 mmol/L 08/03/2024 2:39 PM EST [facility] Comment:1+ hemolysis, result may be falsely increased Cl 101 98 - 107 mmol/L 08/03/2024 2:39 PM EST [facility] CO2 25 22 - 32 mmol/L 08/03/2024 2:39 PM EST [facility] Anion Gap 13 5 - 15 08/03/2024 2:39 PM EST [facility] Glucose 79 65 - 99 mg/dL 08/03/2024 2:39 PM EST [facility] Creatinine 1.06 0.60 - 1.30 mg/dL 08/03/2024 2:39 PM EST [facility] Calcium 9.9 8.6 - 10.5 mg/dL 08/03/2024 2:39 PM EST [facility] Total Protein 7.8 6.0 - 8.0 g/dL 08/03/2024 2:39 PM EST [facility] Albumin 4.7 3.5 - 5.2 g/dL 08/03/2024 2:39 PM EST [facility] Bilirubin, Total 0.4 0.2 - 1.2 mg/dL 08/03/2024 2:39 PM EST [facility] Alkaline Phosphatase 91 35 - 129 U/L 08/03/2024 2:39 PM EST [facility] AST 22 10 - 40 U/L 08/03/2024 2:39 PM EST [facility] Comment:1+ hemolysis, result may be falsely increased ALT 24 10 - 40 U/L 08/03/2024 2:39 PM EST [facility] BUN 16 7 - 23 mg/dL 08/03/2024 2:39 PM EST [facility] eGFR >90 >=60 mL/min/1. 73m2 08/03/2024 2:39 PM EST [facility] Comment:The estimated glomer ular filtration rate (eGFR) is calculated using a new formula developed by the NKF-ASN task force to eliminate race-based correction factors. The new formula uses serum/plasma creatinine, age, and gender to determine eGFR. A value below 60mls/min might indicate kidney disease and will be flagged. For additional information, see Tiffany olivera al, Am J Kidney Dis. 2021;79(2):268- 288, A Unifying Approach for GFR estimation: Recommendations of the NKF-ASN Task Force on Reassessing the Inclusion of Race in Diagnosing Kidney Disease . Globulin, Total 3.1 2.1 - 4.2 g/dL 08/03/2024 2:39 PM EST [facility] A/G Ratio 1.5 1.5 - 3.0 08/03/2024 2:39 PM EST [facility] Blood Structure of peripheral vein / Unknown Venipuncture / Unknown 08/03/2024 1:26 PM EST 08/03/2024 2:00 PM EST Hugo Valente MD LAB BLOOD ORDERABLES Final Resul t [facility] [address] [place] [address], from Last 3 Months Insurance [facility] HMO/POS WORKERS COMPENSATION Advance Directives Documents on File Type Date Recorded Patient Assistant Professor Of Drama Expl [facility] Care Proxy 08/05/2024 6:57 AM 2024 Care Teams Health Sciences Manager Relationship Specialty Start Date End Date Hugo Valente MD [address] [place] [id number] PCP - General Internal Medicine 08/03/24
[2024-09-05 13:03] LABS: Basophils Percent Auto 0.4 % (0-2); Eosinophils Absolute Auto 0.1 X10*3/uL (0.0-0.4); Eosinophils Percent Auto 1.4 % (0-4); Hematocrit 44.6 % (42.0-52.0); Hemoglobin 14.8 g/dl (14.0-18.0); Imm Gran Abs Auto 0.01 X10*3/uL (0.00-0.03); Imm Gran Pct Auto 0.2 % (0.0-0.4); Lymphocytes Absolute Auto 1.6 X10*3/uL (1.2-4.9); Lymphocytes Percent Auto 32.2 % (20-40); Mean Corpuscular HGB Conc 33.2 g/dl (31.0-36.0); Mean Corpuscular Hemoglobin 27.7 pg (27.0-33.0); Mean Corpuscular Volume 83.5 fL (80.0-98.0); Monocytes Absolute Auto 0.3 X10*3/uL (0.1-1.2); Monocytes Percent Auto 5.9 % (2-11); Neutrophils Absolute Auto 3.1 x10*3/uL (2.0-8.3); Neutrophils Percent Auto 59.9 % (45-73); Platelet Count 282 X10*3/uL (160-400); Red Blood Count 5.34 X10*6/uL (4.60-5.80); Red Cell Distribution Width 11.8 % (11.0-16.0); White Blood Count 5.1 X10*3/uL (4.8-10.8)
[2024-09-05 13:07] LABS: INTERNATIONAL NORM RATIO 0.9 (0.9-1.1)
[2024-09-05 13:09] LABS: Alanine Aminotransferase 54 U/L (0-40); Albumin Level 4.4 g/dL (3.5-5.0); Alkaline Phosphatase 91 U/L (39-117); Anion Gap 13 (12-20); Aspartate Amino Transferase 24 U/L (5-37); Bilirubin Total 0.7 mg/dL (0.0-1.0); Blood Urea Nitrogen 13 mg/dL (9-16); Calcium 9.7 mg/dL (8.4-10.2); Carbon Dioxide 24 mmol/L (22-29); Chloride 108 mmol/L (96-108); Creatinine Clr Calc Pharmacy 151.1; Estimated Glomerular Filt Rate > 60; Glucose Random 100 mg/dL (60-115); Lipase 24 U/L (8-78); Partial Thromboplastin Time 31.6 SEC (26.0-36.8); Potassium 4.3 mmol/L (3.3-5.1); Sodium 141 mmol/L (135-145); Total Protein 8.1 g/dL (6.5-8.0)
[2024-09-05 13:34] LABS: Influenza A PCR NEGATIVE (Negative); Influenza B PCR NEGATIVE (Negative); Resp Syncy Virus RNA Qual PCR NEGATIVE (Negative); SARS COV2 PCR INHOUSE NEGATIVE (Negative)
--- NOTE | 2024-09-05 13:40 | ECG_ITS ---
Test Reason : SOB Blood Pressure : */* mmHG Vent. Rate : 62 BPM Atrial Rate : 62 BPM P-R Int : 224 ms QRS Dur : 88 ms QT Int : 388 ms P-R-T Axes : 40 21 1 degrees QTcB Int : 393 ms Sinus rhythm with 1st degree A-V block Otherwise normal ECG No previous ECGs available Referred By: Nhan Merino Electronically Signed By: ADENIKE COBURN
[2024-09-05 14:03] LABS: D Dimer High Sensitivity 162 NG/ML
[2024-09-05 14:47] LABS: Appearance Urine Clear; Color Urine Yellow; Glucose Urine UA Negative (Negative); Leukocyte Esterase Urine Negative (Negative); Nitrite Urine Negative (Negative); Urine Blood Negative (Negative); Urine Ketones Negative (Negative); Urine Protein Negative (Neg-Trace)
[2024-09-05 14:55] LABS: Troponin-I High Sensitivity < 2.7 ng/L (<3.5-35.0)
[2024-09-05 16:14] VITALS: BP 129/76; PULSE 65; RESP 16; O2SAT 100
[2024-09-05 16:47] VITALS: BP 129/76; PULSE 65; RESP 16; TEMP -17.7; TEMP 0; O2SAT 100
== END 2024-09-05 16:49 | disposition home or self-care (01) ==
PROVIDERS: Physician Assistant; Emergency Provider Emergency Medicine
DX: R07.81 Pleurodynia (principal); R10.11 Right upper quadrant pain; I44.0 Atrioventricular block, first degree; R06.02 Shortness of breath; Z79.899 Other long term (current) drug therapy; Z03.818 Encounter for observation for suspected exposure to other biological agents ruled out
CPT/HCPCS: 0241U; 36415; 71046; 71250; 74176; 80053; 81003; 83690; 84484; 85025; 85379; 85610; 85730; 93005; 99284; 99285

== ENCOUNTER → 2024-09-05 12:03 | Outpatient (BNV) | payer BC, SELFPAY | PROVIDERS: Emergency Provider Emergency Medicine; Visit Provider Radiology Diagnostic Radiology | DX: R10.9 Unspecified abdominal pain (principal); R07.89 Other chest pain | CPT/HCPCS: 71046; 71250; 74176 ==

== ENCOUNTER → 2024-09-05 13:40 | Outpatient (BNV) | payer BC, SELFPAY | PROVIDERS: Emergency Provider Emergency Medicine; Visit Provider Internal Medicine | DX: I44.0 Atrioventricular block, first degree (principal) | CPT/HCPCS: 93010 ==